=== PATIENT | male | born 1995 | race Caucasian/White ===

== ENCOUNTER 2019-01-02 11:34 | Emergency (ER) | payer SELFPAY ==
[~2019-01-02] VITALS: Ht 175.3 cm; Wt 63.5 kg
[2019-01-02 11:42] VITALS: BP 144/85
[2019-01-02] MEDS ORDERED: NKM (11:47)
--- NOTE | 2019-01-02 11:52 | NUR ---
ED Nurse Note: Pt from the street came in due to possible scabies. Pt states he has been having body rashes and itching. Hx of scabies. Pt also c/o alcohol withdrawal symptoms like tremors and admits he has been alcoholic for a long time. Pt is AAO x4, ambulatory with non labored breathing. Noted rashes and redness on body.
[2019-01-02] MEDS ORDERED: ATARAX25 MG ORAL (12:07)
[2019-01-02] MEDS ORDERED: LORazepam 1mg tab ORAL ONE (12:15)
[2019-01-02] MEDS ORDERED: HydrOXYzine tab 25mg tab ORAL ONE (12:15)
[2019-01-02 12:17] VITALS: BP 138/75
--- NOTE | 2019-01-02 12:17 | NUR ---
ER DISCHARGE NOTE: Patient is cleared to be discharged per ERMD, pt is aox4, on room air, with stable vital signs. pt was given dc and prescription instructions, Pt signed homeless DC paper. pt was able to verbalize understanding, pt id band removed. pt is able to ambulate with steady gait. pt took all belongings.
--- NOTE | 2019-01-02 15:02 | Emergency Room Report ---
History of Present Illness General Chief Complaint: General Complaint Source: Patient Present Illness HPI Patient is a 23 -year-old male who presented after increased skin rash. Patient reports having multiple itchy areas to his neck and trunk. Patient had prior history of alcohol abuse and states he last drank this morning. He denies any hematemesis or bloody stools. He reports having seizures in the past. He denies any recent bad food exposure or shortness of breath. Allergies: Coded Allergies: No Known Allergies (Unverified , 01/02/19) Patient History Past Medical History: see triage record Reviewed Nursing Documentation: PMH: Agreed; PSxH: Agreed Nursing Documentation-PMH Past Medical History: No History, Except For Review of Systems All Other Systems: negative except mentioned in HPI Physical Exam Vital Signs Date Time Temp Pulse Resp B/P (MAP) Pulse Ox O2 Delivery O2 Flow Rate FiO2 01/02/19 11:42 98.2 67 19 144/85 95 Room Air General Appearance: no apparent distress, alert, GCS 15, Chronically Ill Head: normocephalic, atraumatic ENT: hearing grossly normal, normal voice, other - lip abrasion Neck: full range of motion, supple Respiratory: lungs clear, no respiratory distress, speaking full sentences Cardiovascular #1: regular rate, rhythm, no edema Gastrointestinal: normal inspection Musculoskeletal: no calf tenderness Neurologic: normal inspection, alert, oriented x3, responsive, normal gait Psychiatric: mood/affect normal Skin: other - papular rash Medical Decision Making Diagnostic Impression: Primary Impression: Alcohol abuse Additional Impression: Skin rash ER Course . Patient presented for skin rash. Differential diagnosis include was not limited to scabies, contact dermatitis, eczema, viral exanthem among others. Patient has a benign exam and does not appear to require any further imaging or laboratory testing at this time patient was noted to have a prior history of scabies. Patient reports having a prior history of alcohol abuse and states he last drank this morning. He was given Ativan but does not appear to be actively withdrawing. Patient was given medications for symptomatic treatment. He was also given permethrin cream. This does not appear to be definitely scabies. Patient was not noted to have any conjunctivitis or cough. Patient appears stable for outpatient management. He was given prescription for Atarax Last Vital Signs Date Time Temp Pulse Resp B/P (MAP) Pulse Ox O2 Delivery O2 Flow Rate FiO2 01/02/19 12:17 98.0 75 19 138/75 97 Room Air Status: improved Disposition: HOME, SELF-CARE Condition: Stable Scripts Hydroxyzine HCl (Hydroxyzine HCl) 25 Mg Tablet 25 MG ORAL FOUR TIMES A DAY, #30 TAB Prov: Emerson Barahona MD 01/02/19 Referrals: NOT [facility]OSEN [facility]/,REFERRING (PCP) Patient Instructions: Alcohol Use Disorder, Rash Emerson Barahona MD Jan 02, 2019 15:02
== END 2019-01-02 12:20 | disposition home or self-care (01) ==
LOC: EMR 12:00
DX: R21 Rash and other nonspecific skin eruption (principal); F10.10 Alcohol abuse, uncomplicated; G40.909 Epilepsy, unspecified, not intractable, without status epilepticus
CPT/HCPCS: 99282

== ENCOUNTER 2020-07-22 08:25 | Emergency (ER) | payer OTHER, SELFPAY ==
[~2020-07-22] VITALS: Ht 177.8 cm; Wt 68.0 kg
[~2020-07-22 08:25] MED LIST: ATARAX25 MG ORAL; NKM
--- NOTE | 2020-07-22 08:30 | NUR ---
ED Nurse Note: Pt was brought in by ambulance from home d/t nausea/diarrhea/vomiting accompanied by epigastric pain onset today. Pt is AOx4, cooperative to care, pt verbalized as well, "I'm having anxiety and seizure whenever I have etoh withdrawal". per pt last etoh intake was this morning.
[2020-07-22 08:39] VITALS: BP 174/80
[2020-07-22] MEDS ORDERED: chlordiazePOXIDE 25mg Cap ORAL ONE (10:00)
[2020-07-22] MEDS ORDERED: LORazepam Inj 2mg/ml 1ml IV ONE (10:00)
[2020-07-22 10:18] LABS: APPEARANCE,URINE CLEAR; BILIRUBIN, URINE NEGATIVE (NEGATIVE); GLUCOSE, URINE (UA) NEGATIVE (NEGATIVE); KETONES,URINE 4+ (NEGATIVE); LEUKOCYTE ESTERASE ,URINE NEGATIVE (NEGATIVE); NITRITE,URINE NEGATIVE (NEGATIVE); PH,URINE 5 (4.5-8.0); PROTEIN,URINE 3+ (NEGATIVE); UROBILINOGEN,URINE 1 MG/DL (0.0-1.0)
[2020-07-22 10:24] LABS: COLOR,URINE PALE YELLOW
[2020-07-22 10:25] LABS: BASOPHILS % (AUTO) 0.9 % (0.0-2.0); EOSINOPHILS % (AUTO) 0.1 % (0.0-3.0); HEMATOCRIT 37.3 % (42.0-52.0); HEMOGLOBIN 12.7 G/DL (14.2-18.0); LYMPHOCYTES % (AUTO) 8.5 % (20.0-45.0); MEAN CORPUSCULAR VOLUME 99 FL (80-99); MONOCYTES % (AUTO) 7.4 % (1.0-10.0); NEUTROPHILS % (AUTO) 83.1 % (45.0-75.0); PLATELET COUNT 145 K/UL (150-450); RED BLOOD COUNT 3.77 M/UL (4.70-6.10); RED CELL DISTRIBUTION WIDTH 11.7 % (11.6-14.8)
[2020-07-22 10:32] LABS: ANION GAP 17 mmol/L (5-15); BLOOD UREA NITROGEN 9 mg/dL (7-18); CALCIUM 8.8 MG/DL (8.5-10.1); CARBON DIOXIDE 23 MMOL/L (21-32); CHLORIDE 99 MMOL/L (98-107); CREATININE 0.8 MG/DL (0.55-1.30); POTASSIUM 4.3 MMOL/L (3.5-5.1); SODIUM 139 MMOL/L (136-145)
[2020-07-22 10:36] LABS: ALANINE AMINOTRANSFERASE 36 U/L (12-78); ALBUMIN 3.8 G/DL (3.4-5.0); ALBUMIN/GLOBULIN RATIO 1.1 (1.0-2.7); ALKALINE PHOSPHATASE 102 U/L (46-116); ASPARTATE AMINO TRANSFERASE 46 U/L (15-37); BILIRUBIN,TOTAL 0.7 MG/DL (0.2-1.0)
[2020-07-22] MEDS ORDERED: FOLIC ACID1 MG ORAL (11:28)
[2020-07-22] MEDS ORDERED: ZOFRAN ODT8 MG ORAL (11:28)
[2020-07-22] MEDS ORDERED: VITAMIN B-1100 MG ORAL (11:28)
[2020-07-22 12:15] VITALS: BP 158/67
--- NOTE | 2020-07-22 12:15 | NUR ---
ER DISCHARGE NOTE: Patient is cleared to be discharged per ERMD, pt is aox4, on room air, with stable vital signs. pt was given dc and prescription instructions, pt was able to verbalize understanding, pt id band and iv site removed without complications. pt is able to ambulate with steady gait. pt took all belongings.
--- NOTE | 2020-07-22 13:39 | Emergency Room Report ---
History of Present Illness General Chief Complaint: Nausea, Vomiting, and Diarrhea Source: Patient Present Illness HPI 25-year-old male with history of alcohol use disorder here with vomiting and diarrhea. Patient says that for the past 2 days he has been having multiple bouts of vomiting and diarrhea. Patient is homeless. However he does follow-up at an outpatient psychiatric clinic and has recently been started on Abilify. Says he has been compliant with his medications. Last drink was earlier this morning. Also complaining of some mild tremulousness. Denies headaches, vision change, fevers, chills, chest pain, palpitation, shortness of breath, back pain, abdominal pain, dysuria. 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 Review of Systems All Other Systems: negative except mentioned in HPI Physical Exam Vital Signs Date Time Temp Pulse Resp B/P (MAP) Pulse Ox O2 Delivery O2 Flow Rate FiO2 07/22/20 08:23 97.2 110 20 174/80 (111) 97 Room Air Sp02 EP Interpretation: reviewed, normal General Appearance: no apparent distress, alert, non-toxic Head: normocephalic, atraumatic Eyes: bilateral eye normal inspection, bilateral eye PERRL ENT: hearing grossly normal, normal pharynx, no angioedema, normal voice Neck: full range of motion, supple/symm/no masses Respiratory: chest non-tender, lungs clear, normal breath sounds, speaking full sentences Cardiovascular #1: regular rate, rhythm, no edema Cardiovascular #2: 2+ carotid (R), 2+ carotid (L), 2+ radial (R), 2+ radial (L), 2+ dorsalis pedis (R), 2+ dorsalis pedis (L) Gastrointestinal: normal bowel sounds, non tender, soft, non-distended, no guarding, no rebound Rectal: deferred Genitourinary: normal inspection, no CVA tenderness Musculoskeletal: back normal, normal range of motion, gait/station normal, non- tender Neurologic: alert, motor strength/tone normal, sensory intact, responsive, speech normal Psychiatric: judgement/insight normal, memory normal, mood/affect normal, no suicidal/homicidal ideation Lymphatic: no adenopathy Medical Decision Making Homeless Attestation Patient has been medically screened and is stable for outpatient follow up Diagnostic Impression: Primary Impression: Nausea, vomiting, and diarrhea Additional Impression: Alcohol abuse ER Course Laboratory Tests Test 07/22/20 09:43 White Blood Count 4.0 K/UL (4.8-10.8) L Red Blood Count 3.77 M/UL (4.70-6.10) L Hemoglobin 12.7 G/DL (14.2-18.0) L Hematocrit 37.3 % (42.0-52.0) L Mean Corpuscular Volume 99 FL (80-99) Mean Corpuscular Hemoglobin 33.7 PG (27.0-31.0) H Mean Corpuscular Hemoglobin Concent 34.0 G/DL (32.0-36.0) Red Cell Distribution Width 11.7 % (11.6-14.8) Platelet Count 145 K/UL (150-450) L Mean Platelet Volume 7.5 FL (6.5-10.1) Neutrophils (%) (Auto) 83.1 % (45.0-75.0) H Lymphocytes (%) (Auto) 8.5 % (20.0-45.0) L Monocytes (%) (Auto) 7.4 % (1.0-10.0) Eosinophils (%) (Auto) 0.1 % (0.0-3.0) Basophils (%) (Auto) 0.9 % (0.0-2.0) Urine Color Pale yellow Urine Appearance Clear Urine pH 5 (4.5-8.0) Urine Specific [place] 1.030 (1.005-1.035) Urine Protein 3+ (NEGATIVE) H Urine Glucose (UA) Negative (NEGATIVE) Urine Ketones 4+ (NEGATIVE) H Urine Blood 1+ (NEGATIVE) H Urine Nitrite Negative (NEGATIVE) Urine Bilirubin Negative (NEGATIVE) Urine Urobilinogen 1 MG/DL (0.0-1.0) H Urine Leukocyte Esterase Negative (NEGATIVE) Urine RBC 0 /HPF (0 - 0) Urine WBC 0-2 /HPF (0 - 0) Urine Squamous Epithelial Cells Occasional /LPF Urine Bacteria Occasional /HPF (NONE) Urine Mucus Few /LPF (NONE/OCC) H Sodium Level 139 MMOL/L (136-145) Potassium Level 4.3 MMOL/L (3.5-5.1) Chloride Level 99 MMOL/L (98-107) Carbon Dioxide Level 23 MMOL/L (21-32) Anion Gap 17 mmol/L (5-15) H Blood Urea Nitrogen 9 mg/dL (7-18) Creatinine 0.8 MG/DL (0.55-1.30) Estimated Glomerular Filtration Rate > 60 mL/min (>60) Glucose Level 66 MG/DL (74-106) L Calcium Level 8.8 MG/DL (8.5-10.1) Total Bilirubin 0.7 MG/DL (0.2-1.0) Aspartate Amino Transferase (AST) 46 U/L (15-37) H Alanine Aminotransferase (ALT) 36 U/L (12-78) Alkaline Phosphatase 102 U/L (46-116) Total Protein 7.2 G/DL (6.4-8.2) Albumin 3.8 G/DL (3.4-5.0) Globulin 3.4 g/dL Albumin/Globulin Ratio 1.1 (1.0-2.7) Lipase 193 U/L (73-393) Urine Opiates Screen Negative (NEGATIVE) Urine Barbiturates Screen Negative (NEGATIVE) Phencyclidine (PCP) Screen Negative (NEGATIVE) Urine Amphetamines Screen Negative (NEGATIVE) Urine Benzodiazepines Screen Positive (NEGATIVE) H Urine Cocaine Screen Negative (NEGATIVE) Urine Marijuana (THC) Screen Negative (NEGATIVE) Serum Alcohol 16 mg/dL 25-year-old male homeless with history of alcohol use disorder here with vomiting and diarrhea. Patient was hemodynamically stable and neurovascular intact in the emergency department. He had very mild tremulousness on physical examination which was relieved with Librium and Ativan. He had normal vital signs. No evidence of delirium tremens at this time. Last drink was earlier this morning. Was given a prescription for thiamine and folic acid. CBC, CMP largely unremarkable. He was given Zofran and IV fluids with good resolution of his symptoms. Given prescription for Zofran to take as needed for vomiting. Told to come back to the emergency department with worsening symptoms. Discharged in stable condition. Last Vital Signs Date Time Temp Pulse Resp B/P (MAP) Pulse Ox O2 Delivery O2 Flow Rate FiO2 07/22/20 10:11 110 20 174/80 97 07/22/20 08:39 97.2 Room Air Disposition: HOME, SELF-CARE Condition: Stable Scripts Ondansetron Odt* (ZOFRAN ODT*) 8 Mg Tab.rapdis 8 MG ORAL Q6H PRN for Nausea & Vomiting, #12 TAB Prov: Brayan Vásquez M.D. 07/22/20 Folic Acid* (FOLIC ACID*) 1 Mg Tablet 1 MG ORAL DAILY for SUPPLEMENT for 28 Days, TAB Prov: Brayan Vásquez M.D. 07/22/20 Thiamine Hcl* (VITAMIN B-1*) 100 Mg Tablet 100 MG ORAL DAILY, #30 TAB 0 Refills Prov: Brayan Vásquez M.D. 07/22/20 Referrals: [facility]ERR[facility] (PCP) [facility] Patient Instructions: Diarrhea, Adult Additional Instructions: Please follow-up with your primary care doctor in the next 1 to 3 days to discuss this emergency department visit and for reevaluation. If you have any new or worsening symptoms please return to the emergency department for reevaluation. Brayan Vásquez M.D. Jul 22, 2020 13:39
== END 2020-07-22 12:15 | disposition home or self-care (01) ==
LOC: EDBD 08:25 → EMR 09:55
DX: R11.2 Nausea with vomiting, unspecified (principal); R19.7 Diarrhea, unspecified; F10.10 Alcohol abuse, uncomplicated; Y90.0 Blood alcohol level of less than 20 mg/100 ml; Z88.2 Allergy status to sulfonamides; Z59.0 Homelessness
CPT/HCPCS: 36415; 80053; 80307; 81003; 83690; 85025; 96361; 96374; 96375; G0480; J2405; J7030; S0028; Z7502; 99284